=== PATIENT | male | born 1970 | race Hispanic/Latino ===

== ENCOUNTER 2018-12-17 09:36 | Emergency (ER) | payer MEDICARE ==
[2018-12-17 10:13] VITALS: BP 103/68
[2018-12-17 10:33] LABS: Basophils # (Auto) 0.1 K/mm3 (0.0-0.1); Basophils % (Auto) 1.1 % (0.0-1.8); Eosinophils # (Auto) 0.4 K/mm3 (0.0-0.4); Eosinophils % (Auto) 5.7 % (0.0-4.3); Hematocrit 42.6 % (35.5-45.6); Hemoglobin 14.6 gm/dl (11.8-15.2); Lymphocytes # (Auto) 2.1 K/mm3 (1.2-5.4); Lymphocytes % (Auto) 27.2 % (13.4-35.0); Mean Corpuscular HGB Conc 34 % (32-34); Mean Corpuscular Volume 99 fl (84-94); Monocytes # (Auto) 0.9 K/mm3 (0.0-0.8); Monocytes % (Auto) 11.5 % (0.0-7.3); Platelet Count 535 K/mm3 (140-440); Red Blood Count 4.32 M/mm3 (3.65-5.03); Red Cell Distribution Width 14.7 % (13.2-15.2)
[2018-12-17 10:43] LABS: INR 1.01 (0.87-1.13)
[2018-12-17 10:44] LABS: Partial Thromboplastin Time 36.3 Sec. (24.2-36.6)
--- NOTE | 2018-12-17 10:45 | XRay Report ---
CHEST 1 VIEW INDICATION: Intermittent left chest pain that radiates to left shoulder. COMPARISON: None FINDINGS: Support devices: None. Heart: Within normal limits. Lungs/Pleura: No acute air space or interstitial disease. Additional findings: None. IMPRESSION: No acute findings. Signer Name: Ru Cary Jr, MD Signed: 12/17/2018 10:41 AM Workstation Name: [id number]
[2018-12-17 10:58] LABS: Alanine Aminotransferase 11 units/L (7-56); Albumin 3.2 g/dL (3.9-5); BUN/Creatinine Ratio 10; Blood Urea Nitrogen 6 mg/dL (9-20); Calcium 8.8 mg/dL (8.4-10.2); Hemolysis Index 7
--- NOTE | 2018-12-17 11:28 | Emergency Department Report ---
ED Chest Pain HPI - General Chief Complaint: Chest Pain Stated Complaint: CHEST PAIN Time Seen by Provider: 12/17/18 11:14 Source: patient, EMS Mode of arrival: Stretcher Limitations: No Limitations - History of Present Illness Initial Comments: 48-year-old male with history of DVTs, PEs, schizoaffective disorder presents to ED with complaint of chest pain, suicidal ideations, homicidal ideations. Patient reported suicidal thoughts and homicidal ideation times one week. Patient states he is having auditory hallucinations telling him to kill his ro ommate. Patient reports a plan to commit suicide includes cutting his wrists or taking pills. Patient reports onset of sharp left-sided chest pain this morning, intermittent, nonradiating. Denies shortness of breath. Denies leg pain or swelling. Currently taking Eliquis for history of blood clots. MD Complaint: chest pain -: This morning Onset: during rest Pain Location: left chest Pain Radiation: none Severity: moderate Severity scale (0 -10): 4 Quality: sharp Consistency: intermittent Improves With: nothing Worsens With: nothing re: denies: nausea, vomting, diaphoresis, dyspnea Other Symptoms: denies: cough, fever, leg swelling - Related Data Home Medications Medication Instructions Recorded Confirmed Last Taken Duloxetine HCl [Cymbalta] 60 mg PO BID 07/05/13 12/17/18 12/16/18 Levothyroxine [Synthroid] 137 mcg PO QAM 07/05/13 12/17/18 12/16/18 QUEtiapine [SEROquel] 600 mg PO QHS 07/05/13 12/17/18 12/16/18 Fluticasone Propionate [Cutivate 2 gm TP PRN PRN 10/29/14 12/17/18 05/17/15 0.05% CREAM] Apixaban [Eliquis] 5 mg PO BID 12/17/18 12/17/18 12/16/18 Previous Rx's Medication Instructions Recorded Last Taken Type Aspirin [Aspirin BABY CHEW TAB] 81 mg PO QDAY #30 tab.chew 04/19/15 12/16/18 Rx Allergies Allergy/AdvReac Type Severity Reaction Status Date / Time ketorolac tromethamine Allergy Itching Verified 09/08/14 14:36 [From Toradol] morphine Allergy Nausea Verified 04/19/15 08:54 ED Review of Systems ROS: Stated complaint: CHEST PAIN Other details as noted in HPI Comment: All other systems reviewed and negative Constitutional: denies: chills, fever Respiratory: denies: cough, shortness of breath Cardiovascular: chest pain Gastrointestinal: denies: nausea, vomiting Psychiatric: auditory hallucinations, homicidal thoughts, suicidal thoughts ED Past Medical Hx - Past Medical History Hx Congestive Heart Failure: No Hx Diabetes: No Hx Pulmonary Embolism: Yes (08) Hx GERD: No Hx Arthritis: Yes (knees) Hx Psychiatric Treatment: Yes (depression and schizo-affective, receives shock therapy) Hx Asthma: No Hx COPD: No Additional medical history: ITP chronic back pain, hypothyroid - Surgical History Hx Appendectomy: Yes Additional Surgical History: Splenectomy, juice filter - Social History Smoking Status: Former Smoker Substance Use Type: None - Medications Home Medications: Home Medications Medication Instructions Recorded Confirmed Last Taken Type Duloxetine HCl [Cymbalta] 60 mg PO BID 07/05/13 12/17/18 12/16/18 History Levothyroxine [Synthroid] 137 mcg PO QAM 07/05/13 12/17/18 12/16/18 History QUEtiapine [SEROquel] 600 mg PO QHS 07/05/13 12/17/18 12/16/18 History Fluticasone Propionate [Cutivate 2 gm TP PRN PRN 10/29/14 12/17/18 05/17/15 History 0.05% CREAM] Aspirin [Aspirin BABY CHEW TAB] 81 mg PO QDAY #30 tab.chew 04/19/15 12/17/18 0 12/16/18 Rx Apixaban [Eliquis] 5 mg PO BID 12/17/18 12/17/18 12/16/18 History ED Physical Exam - General Limitations: No Limitations General appearance: alert, in no apparent distress, obese - Head Head exam: Present: atraumatic, normocephalic - Eye Eye exam: Present: normal appearance - ENT ENT exam: Present: mucous membranes moist - Neck Neck exam: Present: normal inspection - Respiratory Respiratory exam: Present: normal lung sounds bilaterally. Absent: respiratory distress - Cardiovascular Cardiovascular Exam: Present: regular rate, normal rhythm - GI/Abdominal GI/Abdominal exam: Present: soft. Absent: distended, tenderness - Extremities Exam Extremities exam: Present: normal inspection. Absent: pedal edema, calf tenderness - Neurological Exam Neurological exam: Present: alert, oriented X3 - Psychiatric Psychiatric exam: Present: homicidal ideation, suicidal ideation - Skin Skin exam: Present: warm, dry, intact, normal color ED Course Vital Signs 12/17/18 12/17/18 12/17/18 09:40 09:51 11:34 Temperature 98.6 F Pulse Rate 61 89 Respiratory 18 18 18 Rate Blood Pressure 145/85 Blood Pressure 103/68 [Left] O2 Sat by Pulse 98 97 98 Oximetry CARMELA score - Carmela Score Age > 65: (0) No Aspirin use within the Past 7 Days: (0) No 3 or more CAD Risk Factors: (1) Yes 2 or more Angina events in past 24 hrs: (0) No Known CAD with more than 50% Stenosis: (0) No Elevated Cardiac Markers: (0) No ST Deviation Greater than 0.5mm: (0) No CARMELA Score: 1 ED Medical Decision Making - Lab Data Result diagrams: 12/17/18 10:22 12/17/18 10:22 - EKG Data -: EKG Interpreted by Ms EKG shows normal: sinus rhythm, axis, intervals, QRS complexes, ST-T waves Rate: normal - EKG Data Interpretation: other ([facility]) - Radiology Data Radiology results: report reviewed, image reviewed - Medical Decision Making 48-year-old male presents to ED with SI, HI, and chest pain. History of blood clots, currently on Eliquis. D-dimer is normal. EKG shows no ST changes. Troponin negative 2. Patient requested Dilaudid for pain. Workup for chest pain is unremarkable. Patient is medically clear for mental health evaluation. Patient was placed on 1013. Will dispo per psych. - Differential Diagnosis ACS, chest wall pain, SI, HI Critical care attestation.: If time is entered above; I have spent that time in minutes in the direct care of this critically ill patient, excluding procedure time. ED Disposition Clinical Impression: Suicidal ideation, Homicidal ideation, Chest pain Disposition: [id number] PSY HOSP/PSY UNIT Condition: Stable Instructions: Chest Pain (ED) Referrals: VALERI BUTLER MD [Primary Care Provider] - 3-5 Days
[2018-12-17] MEDS ORDERED: NORCO 10/325 PO ONE (12:55)
[2018-12-17 14:02] LABS: Amphetamine Screen,Urine PRESUMPTIVE NEGATIVE; Benzodiazepines Screen,Urine PRESUMPTIVE NEGATIVE; Cannabinoid Screen,Urine PRESUMPTIVE NEGATIVE; Cocaine Screen,Urine PRESUMPTIVE NEGATIVE; Methadone Screen,Urine PRESUMPTIVE NEGATIVE; Opiate Screen,Urine PRESUMPTIVE NEGATIVE
[2018-12-17] MEDS ORDERED: ATIVAN PO ONE (15:01)
== END 2018-12-17 15:30 ==
LOC: ED 09:36 → EEVIPCON 09:36 → ED 15:30
DX: R07.89 Other chest pain (principal); F32.9 Major depressive disorder, single episode, unspecified; F20.9 Schizophrenia, unspecified; M19.90 Unspecified osteoarthritis, unspecified site; G89.29 Other chronic pain; M54.9 Dorsalgia, unspecified; E03.9 Hypothyroidism, unspecified; Z90.49 Acquired absence of other specified parts of digestive tract; Z87.891 Personal history of nicotine dependence; Z79.82 Long term (current) use of aspirin; Z79.899 Other long term (current) drug therapy; Z88.6 Allergy status to analgesic agent
CPT/HCPCS: 36415; 71045; 80053; 80307; 80320; 84484; 85025; 85379; 85610; 85730; 93005; 93010; 99285; G0480